=== PATIENT | female | born 1940 | race American Indian/Alaskan Native ===

== ENCOUNTER 2016-10-21 10:18 | Inpatient (IN) | payer MEDICARE ==
[2016-10-21 10:51] LABS: ISTAT Base Excess 2; ISTAT HCO3 30.6; ISTAT PCO2 86.7 (35-45); ISTAT PH 7.155 (7.35-7.45); ISTAT PO2 160 (80-105); ISTAT SO2 99; ISTAT TCO2 33
[2016-10-21] MEDS ORDERED: NACL 0.9% 1000 ML 1,000 ML IV ONE (11:02)
[2016-10-21] MEDS ORDERED: LEVAQUIN 500MG/100ML 100 ML IV ONE (11:06)
[2016-10-21 11:27] LABS: Mean Corpuscular HGB Conc 30 % (30-34); Mean Corpuscular Hemoglobin 29 pg (28-32); Mean Corpuscular Volume 95 fl (79-97); Platelet Count 355 K/mm3 (140-440); Red Blood Count 3.35 M/mm3 (3.65-5.03); Red Cell Distribution Width 17.3 % (13.2-15.2)
[2016-10-21 11:38] LABS: Hematocrit 31.9 % (30.3-42.9); Hemoglobin 9.6 gm/dl (10.1-14.3); INR 1.14 (0.87-1.13); White Blood Count 29.2 K/mm3 (4.5-11.0)
--- NOTE | 2016-10-21 11:41 | XRay Report ---
AP CHEST: HISTORY: Sepsis Bilateral perihilar infiltrates are identified which are new since 08/03/16. This could represent pneumonia or pulmonary edema. Heart size remains normal. No pleural effusion or pneumothorax. IMPRESSION: Bilateral perihilar pneumonia versus pulmonary edema.
[2016-10-21 11:48] LABS: Creatine Kinase MB 1.5 ng/mL (0.0-4.0)
[2016-10-21 11:50] LABS: Alanine Aminotransferase 19 units/L (7-56); Albumin 2.3 g/dL (3.9-5); Albumin/Globulin Ratio 0.3 %; Alkaline Phosphatase 311 units/L (35-129); Anion Gap 13 mmol/L; Bilirubin,Total 0.2 mg/dL (0.1-1.2); Blood Urea Nitrogen 52 mg/dL (7-17); Calcium 10.7 mg/dL (8.4-10.2); Carbon Dioxide 27 mmol/L (22-30); Chloride 104.5 mmol/L (98-107); Creatine Kinase 30 units/L (30-135); Glucose 116 mg/dL (65-100); Magnesium 2.3 mg/dL (1.7-2.3); Potassium 4.8 mmol/L (3.6-5.0); Sodium 140 mmol/L (137-145); Total Protein 9.3 g/dL (6.3-8.2)
[2016-10-21 11:53] LABS: Bilirubin,Direct < 0.2 mg/dL (0-0.2)
[2016-10-21] MEDS ORDERED: VANCOMYCIN PHARMACY TO DOSE IV SCH ×2 (12:00→22:00)
[2016-10-21 12:51] LABS: ISTAT Base Excess -1; ISTAT HCO3 24.5; ISTAT PCO2 45.7 (35-45); ISTAT PH 7.337 (7.35-7.45); ISTAT PO2 94 (80-105); ISTAT SO2 97; ISTAT TCO2 26
[2016-10-21] MEDS ORDERED: VANCOMYCIN/NS 1 GM/250 ML 250 ML IV SCH (13:00)
[2016-10-21 13:02] LABS: Basophils % (Manual) 0 % (0.0-1.8); Blastocytes % (Manual) 0 %
[2016-10-21 13:03] LABS: Anisocytosis 1+; Diff Status Complete; Platelet Estimate Consistent w Auto
--- NOTE | 2016-10-21 13:06 | Emergency Department Report ---
ED General Adult HPI - General Chief complaint: Altered Mental Status Stated complaint: LOW O2 SAT, SOB Time Seen by Provider: 10/21/16 10:55 Source: EMS Mode of arrival: Stretcher Limitations: Altered Mental Status, Physical Limitation - History of Present Illness Initial comments: The patient was sent to this emergency department from the alf at [place] for altered mental status and a low oxygen saturation. I have no report of fever. I believe the patient's baseline to be total care. She is obviously bedridden and contracted. He arrives lethargic and was placed on BiPAP by the nursing and respiratory staff. A blood gas was obtained which demonstrated a pH of 7.155 PCO2 of 86.7 PO2 of 160 with a bicarbonate of 30.6. When I was summoned to the room the patient was already successfully noninvasive ventilatory. She is unable to provide any history. She does not respond to her name but she is awake. -: unknown Consistency: constant Improves with: none Worsens with: none Associated Symptoms: other (unable to obtain) - Related Data Home Medications Medication Instructions Recorded Confirmed Last Taken Sennosides/Docusate Sodium [Senna 1 each PO BID 12/22/13 10/21/16 07/30/16 Laxative Tablet] Anastrozole (Nf) [Arimidex (Nf)] 1 mg PO DAILY 07/31/16 10/21/16 07/30/16 Ferrous Sulfate [Feosol 325 MG tab] 325 mg PO QDAY 07/31/16 10/21/16 07/30/16 Lactulose [Cephulac] 20 gm PO QPM 07/31/16 10/21/16 07/30/16 Levothyroxine [Synthroid] 25 mcg PO QDAY 07/31/16 10/21/16 07/30/16 Previous Rx's Medication Instructions Recorded Last Taken Type HYDROcodone/APAP 5-325 [[place] 1 each PO QDAY #6 tablet 08/07/16 Unknown Rx 5-325 mg TAB] Insulin Glulisine [Apidra] 0 units SUB-Q Q6HR units 08/07/16 Unknown Rx Lipase/Protease/Amylase [Pancreaze 1 each FEEDTUBE PRN PRN #3 capsule 08/07/[address] 10,500 Unit] Sodium Bicarbonate 325 mg FEEDTUBE PRN PRN #3 tablet 08/07/16 Unknown Rx levETIRAcetam [Keppra TAB] 500 mg PO BID #60 tablet 08/07/16 Unknown Rx Allergies Allergy/AdvReac Type Severity Reaction Status Date / Time Penicillins Allergy Unknown Verified 09/05/16 07:18 piperacillin sodium Allergy Unknown Verified 12/22/13 13:11 [From Zosyn] tazobactam sodium Allergy Unknown Verified 12/22/13 13:11 [From Zosyn] ED Review of Systems ROS: Stated complaint: LOW O2 SAT, SOB Other details as noted in HPI Comment: Unobtainable due to pts medical conditions ED Past Medical Hx - Past Medical History Hx CVA: Yes (cerebral infarct) Hx Diabetes: Yes Hx Deep Vein Thrombosis: Yes (left leg) Hx Pulmonary Embolism: Yes Hx GERD: Yes (constipation) Hx Seizures: Yes Hx Psychiatric Treatment: Yes (depression w/ psychosis) Hx Asthma: Yes Hx COPD: Yes Hx Dementia: Yes Hx HIV: No Additional medical history: anorexia; hypothyroidism, UTI; stage IV BED SORES - Surgical History Hx Pacemaker: No Hx Internal Defibrillator: No Additional Surgical History: THYROIDECTOMY; PEG TUBE PLACEMENT - Social History Smoking Status: Unknown if ever smoked - Medications Home Medications: Home Medications Medication Instructions Recorded Confirmed Last Taken Type Sennosides/Docusate Sodium [Senna 1 each PO BID 12/22/13 10/21/16 07/30/16 History Laxative Tablet] Anastrozole (Nf) [Arimidex (Nf)] 1 mg PO DAILY 07/31/16 10/21/16 07/30/16 History Ferrous Sulfate [Feosol 325 MG tab] 325 mg PO QDAY 07/31/16 10/21/16 07/30/16 History Lactulose [Cephulac] 20 gm PO QPM 07/31/16 10/21/16 07/30/16 History Levothyroxine [Synthroid] 25 mcg PO QDAY 07/31/16 10/21/16 07/30/16 History HYDROcodone/APAP 5-325 [[place] 1 each PO QDAY #6 tablet 08/07/16 10/21/16 Unknown Rx 5-325 mg TAB] Insulin Glulisine [Apidra] 0 units SUB-Q Q6HR units 08/07/16 10/21/16 Unknown Rx Lipase/Protease/Amylase [Pancreaze 1 each FEEDTUBE PRN PRN #3 capsule 08/07/16 10/21/16 Unknown Rx 10,500 Unit] Sodium Bicarbonate 325 mg FEEDTUBE PRN PRN #3 tablet 08/07/16 10/21/16 Unknown Rx levETIRAcetam [Keppra TAB] 500 mg PO BID #60 tablet 08/07/16 10/21/16 Unknown Rx ED Physical Exam - General Limitations: Altered Mental Status, Physical Limitation General appearance: lethargic - Head Head exam: Present: atraumatic - Eye Eye exam: Absent: scleral icterus - ENT ENT exam: Present: other (BiPAP mask in place) - Neck Neck exam: Present: normal inspection. Absent: tenderness, meningismus - Respiratory Respiratory exam: Present: rhonchi (bilateral rhonchi). Absent: accessory muscle use - Cardiovascular Cardiovascular Exam: Present: normal rhythm, tachycardia - GI/Abdominal GI/Abdominal exam: Present: soft. Absent: distended, tenderness, guarding, rebound, rigid - Extremities Exam Extremities exam: Present: other (attracted) - Neurological Exam Neurological exam: Present: altered, other (poorly responsive to painful stimuli but awake) - Skin Skin exam: Present: warm, dry ED Course Vital Signs 10/21/16 10/21/16 10/21/16 10:19 10:24 10:30 Temperature 95.5 F L Pulse Rate 117 H 122 H 122 H Respiratory 16 24 18 Rate Blood Pressure 138/71 128/68 O2 Sat by Pulse 100 100 100 Oximetry 10/21/16 10/21/16 10/21/16 10:34 10:35 11:00 Temperature Pulse Rate 122 H 118 H Respiratory 18 20 27 H Rate Blood Pressure 128/68 100/49 O2 Sat by Pulse 100 99 93 Oximetry 10/21/16 10/21/16 11:10 12:00 Temperature Pulse Rate 116 H 112 H Respiratory 33 H 22 Rate Blood Pressure 100/49 86/47 O2 Sat by Pulse 95 80 L Oximetry - Reevaluation(s) Reevaluation #1: The patient was given IV fluid. She was continued on BiPAP. A repeat blood gas was much improved. BiPAP was continued. The patient's chest x-ray showed bilateral infiltrates consistent with bilateral pneumonia. The patient had been empirically treated with Levaquin and vancomycin to start after blood cultures. The hospitalist Dr. Kat was notified of the need for admission. The patient remained hemodynamically stable. 10/21/16 13:06 ED Medical Decision Making - Lab Data Result diagrams: 10/21/16 11:04 10/21/16 11:04 Laboratory Results - last 24 hr 10/21/16 10/21/16 10/21/16 10:39 10:43 11:04 WBC 29.2 H RBC 3.35 L Hgb 9.6 L Hct 31.9 MCV 95 MCH 29 MCHC 30 RDW 17.3 H Plt Count 355 Add Manual Diff Complete Total Counted 200 Seg Neuts % (Manual) 87.0 H Band Neutrophils % 3.5 Lymphocytes % (Manual) 4.5 L Reactive Lymphs % (Man) 0 Monocytes % (Manual) 1.0 Eosinophils % (Manual) 4.0 Basophils % (Manual) 0 Metamyelocytes % 0 Myelocytes % 0 Promyelocytes % 0 Blast Cells % 0 Nucleated RBC % Not Reportable Seg Neutrophils # Man 25.4 H Band Neutrophils # 1.0 Lymphocytes # (Manual) 1.3 Abs React Lymphs (Man) 0.0 Monocytes # (Manual) 0.3 Eosinophils # (Manual) 1.2 H Basophils # (Manual) 0.0 Metamyelocytes # 0.0 Myelocytes # 0.0 Promyelocytes # 0.0 Blast Cells # 0.0 WBC Morphology Not Reportable Hypersegmented Neuts Not Reportable Hyposegmented Neuts Not Reportable Hypogranular Neuts Not Reportable Smudge Cells Not Reportable Toxic Granulation Not Reportable Toxic Vacuolation Not Reportable Dohle Bodies Not Reportable Pelger-Huet Anomaly Not Reportable Onelia Rods Not Reportable Platelet Estimate Consistent w auto Clumped Platelets Not Reportable Plt Clumps, EDTA Not Reportable Large Platelets Not Reportable Giant Platelets Not Reportable Platelet Satelliting Not Reportable Plt Morphology Comment Not Reportable RBC Morphology Not Reportable Dimorphic RBCs Not Reportable Polychromasia Not Reportable Hypochromasia Not Reportable Poikilocytosis Not Reportable Anisocytosis 1+ Microcytosis Not Reportable Macrocytosis Not Reportable Spherocytes Not Reportable Pappenheimer Bodies Not Reportable Sickle Cells Not Reportable Target Cells Not Reportable Tear Drop Cells Not Reportable Ovalocytes Not Reportable Helmet Cells Not Reportable [place] Bodies Not Reportable [place] Rings Not Reportable Lizz Cells Not Reportable Bite Cells Not Reportable Crenated Cell Not Reportable Elliptocytes Not Reportable Acanthocytes (Spur) Not Reportable Rouleaux Not Reportable Hemoglobin C Crystals Not Reportable Schistocytes Not Reportable Malaria parasites Not Reportable Roberto Bodies Not Reportable Hem Pathologist Commnt No PT INR POC ABG pH 7.155 L POC ABG pCO2 86.7 H POC ABG pO2 160 H POC ABG HCO3 30.6 POC ABG Total CO2 33 POC ABG O2 Sat 99 POC ABG Base Excess 2 VBG pH FiO2 100 Sodium Potassium Chloride Carbon Dioxide Anion Gap BUN Creatinine Estimated GFR BUN/Creatinine Ratio Glucose POC Glucose 107 H Lactic Acid Calcium Magnesium Total Bilirubin Direct Bilirubin AST ALT Alkaline Phosphatase Ammonia Total Creatine Kinase CK-MB (CK-2) CK-MB (CK-2) Rel Index Troponin T Total Protein Albumin Albumin/Globulin Ratio 10/21/16 10/21/16 10/21/16 11:04 11:04 11:04 WBC RBC Hgb Hct MCV MCH MCHC RDW Plt Count Add Manual Diff Total Counted Seg Neuts % (Manual) Band Neutrophils % Lymphocytes % (Manual) Reactive Lymphs % (Man) Monocytes % (Manual) Eosinophils % (Manual) Basophils % (Manual) Metamyelocytes % Myelocytes % Promyelocytes % Blast Cells % Nucleated RBC % Seg Neutrophils # Man Band Neutrophils # Lymphocytes # (Manual) Abs React Lymphs (Man) Monocytes # (Manual) Eosinophils # (Manual) Basophils # (Manual) Metamyelocytes # Myelocytes # Promyelocytes # Blast Cells # WBC Morphology Hypersegmented Neuts Hyposegmented Neuts Hypogranular Neuts Smudge Cells Toxic Granulation Toxic Vacuolation Dohle Bodies Pelger-Huet Anomaly Onelia Rods Platelet Estimate Clumped Platelets Plt Clumps, EDTA Large Platelets Giant Platelets Platelet Satelliting Plt Morphology Comment RBC Morphology Dimorphic RBCs Polychromasia Hypochromasia Poikilocytosis Anisocytosis Microcytosis Macrocytosis Spherocytes Pappenheimer Bodies Sickle Cells Target Cells Tear Drop Cells Ovalocytes Helmet Cells Brow[place] Bodies [place] Rings Lizz Cells Bite Cells Crenated Cell Elliptocytes Acanthocytes (Spur) Rouleaux Hemoglobin C Crystals Schistocytes Malaria parasites Roberto Bodies Hem Pathologist Commnt PT 14.5 INR 1.14 H POC ABG pH POC ABG pCO2 POC ABG pO2 POC ABG HCO3 POC ABG Total CO2 POC ABG O2 Sat POC ABG Base Excess VBG pH 7.221 L FiO2 Sodium Potassium Chloride Carbon Dioxide Anion Gap BUN Creatinine Estimated GFR BUN/Creatinine Ratio Glucose POC Glucose Lactic Acid 1.6 Calcium Magnesium Total Bilirubin Direct Bilirubin AST ALT Alkaline Phosphatase Ammonia Total Creatine Kinase CK-MB (CK-2) CK-MB (CK-2) Rel Index Troponin T Total Protein Albumin Albumin/Globulin Ratio 10/21/16 10/21/16 10/21/16 11:04 11:50 12:41 WBC RBC Hgb Hct MCV MCH MCHC RDW Plt Count Add Manual Diff Total Counted Seg Neuts % (Manual) Band Neutrophils % Lymphocytes % (Manual) Reactive Lymphs % (Man) Monocytes % (Manual) Eosinophils % (Manual) Basophils % (Manual) Metamyelocytes % Myelocytes % Promyelocytes % Blast Cells % Nucleated RBC % Seg Neutrophils # Man Band Neutrophils # Lymphocytes # (Manual) Abs React Lymphs (Man) Monocytes # (Manual) Eosinophils # (Manual) Basophils # (Manual) Metamyelocytes # Myelocytes # Promyelocytes # Blast Cells # WBC Morphology Hypersegmented Neuts Hyposegmented Neuts Hypogranular Neuts Smudge Cells Toxic Granulation Toxic Vacuolation Dohle Bodies Pelger-Huet Anomaly Onelia Rods Platelet Estimate Clumped Platelets Plt Clumps, EDTA Large Platelets Giant Platelets Platelet Satelliting Plt Morphology Comment RBC Morphology Dimorphic RBCs Polychromasia Hypochromasia Poikilocytosis Anisocytosis Microcytosis Macrocytosis Spherocytes Pappenheimer Bodies Sickle Cells Target Cells Tear Drop Cells Ovalocytes Helmet Cells Brow[place] Bodies [place] Rings [place] Cells Bite Cells Crenated Cell Elliptocytes Acanthocytes (Spur) Rouleaux Hemoglobin C Crystals Schistocytes Malaria parasites Roberto Bodies Hem Pathologist Commnt PT INR POC ABG pH 7.337 L POC ABG pCO2 45.7 H POC ABG pO2 94 POC ABG HCO3 24.5 POC ABG Total CO2 26 POC ABG O2 Sat 97 POC ABG Base Excess -1 VBG pH FiO2 100 Sodium 140 Potassium 4.8 Chloride 104.5 Carbon Dioxide 27 Anion Gap 13 BUN 52 H Creatinine 0.5 L Estimated GFR > 60 BUN/Creatinine Ratio 104.00 Glucose 116 H POC Glucose Lactic Acid Calcium 10.7 H Magnesium 2.3 Total Bilirubin 0.2 Direct Bilirubin < 0.2 AST 40 ALT 19 Alkaline Phosphatase 311 H Ammonia 74.0 H Total Creatine Kinase 30 CK-MB (CK-2) 1.5 CK-MB (CK-2) Rel Index 5.0 H Troponin T < 0.010 Total Protein 9.3 H Albumin 2.3 L Albumin/Globulin Ratio 0.3 - EKG Data -: EKG Interpreted by Me EKG shows normal: sinus rhythm, axis, intervals, QRS complexes Rate: tachycardia - EKG Data Interpretation: nonspecific ST-T wave danielle There is slight J-point elevation in the inferolateral leads. This is nonspecific. 10/21/16 13:27 - Radiology Data interpreted by me: Bilateral pulmonary infiltrates normal heart size consistent with bilateral pneumonia Critical Care Time: Yes Critical care time in (mins) excluding proc time.: 60 Critical care attestation.: If time is entered above; I have spent that time in minutes in the direct care of this critically ill patient, excluding procedure time. ED Disposition Clinical Impression: Acute hypercapnic respiratory failure, Prerenal azotemia Bilateral pneumonia Qualifiers: Pneumonia type: due to unspecified organism Lung location: unspecified part of lung Qualified Code(s): J18.9 - Pneumonia, unspecified organism Sepsis Qualifiers: Sepsis type: sepsis due to unspecified organism Qualified Code(s): A41.9 - Sepsis, unspecified organism Disposition: OP ADMITTED IP TO THIS HOSP Is pt being admited?: Yes Does the pt Need Aspirin: No Condition: Stable Instructions: Bacterial Pneumonia (ED) Referrals: PRIMARY CARE, [Primary Care Provider] - 3-5 Days Time of Disposition: 13:30
[2016-10-21] MEDS ORDERED: D50W (25GM) IV PRN ×2 (13:08→13:27)
[2016-10-21] MEDS ORDERED: SODIUM BICARBONATE FEEDTUBE PRN (13:17)
[2016-10-21] MEDS ORDERED: PANCREAZE DR 10,500 UNIT FEEDTUBE PRN (13:17)
[2016-10-21] MEDS ORDERED: SYNTHROID PO SCH (13:30)
[2016-10-21] MEDS ORDERED: CEPHULAC PO SCH ×2 (14:00→18:00)
[2016-10-21] MEDS: SENOKOT S PO SCH ×2 (14:08→23:16)
[2016-10-21] MEDS: KEPPRA PO SCH ×2 (14:08→23:15)
[2016-10-21] MEDS: NACL 0.9% 1000 ML 1,000 ML IV ONE ×2 (14:20→20:51)
[2016-10-21 14:28] LABS: Creatine Kinase MB 1.9 ng/mL (0.0-4.0)
[2016-10-21 14:30] LABS: Alanine Aminotransferase 16 units/L (7-56); Albumin 1.6 g/dL (3.9-5); Albumin/Globulin Ratio 0.3 %; Alkaline Phosphatase 231 units/L (35-129); BUN/Creatinine Ratio 86.66; Bilirubin,Total 0.2 mg/dL (0.1-1.2); Blood Urea Nitrogen 52 mg/dL (7-17); Calcium 9.7 mg/dL (8.4-10.2); Carbon Dioxide 24 mmol/L (22-30); Chloride 111.9 mmol/L (98-107); Creatine Kinase 30 units/L (30-135); Glucose 146 mg/dL (65-100); Potassium 4.1 mmol/L (3.6-5.0); Sodium 142 mmol/L (137-145); Total Protein 7.3 g/dL (6.3-8.2)
[2016-10-21 14:34] LABS: Anion Gap 10 mmol/L
[2016-10-21 14:43] LABS: Hematocrit 26.9 % (30.3-42.9); Hemoglobin 8.1 gm/dl (10.1-14.3); Mean Corpuscular HGB Conc 30 % (30-34); Mean Corpuscular Hemoglobin 30 pg (28-32); Mean Corpuscular Volume 99 fl (79-97); Platelet Count 322 K/mm3 (140-440); Red Blood Count 2.73 M/mm3 (3.65-5.03); Red Cell Distribution Width 17.5 % (13.2-15.2); White Blood Count 18.4 K/mm3 (4.5-11.0)
[2016-10-21] MEDS ORDERED: ATROPINE 0.1% (CARDIAC) ONE (15:59)
[2016-10-21] MEDS ORDERED: NOVOLOG SUB-Q SCH (16:30)
[2016-10-21] MEDS ORDERED: ADRENALIN ONE (16:46)
[2016-10-21] MEDS ORDERED: QUELICIN IV ONE (16:56)
[2016-10-21] MEDS ORDERED: AMIDATE IV ONE ×2 (16:56→21:05)
[2016-10-21] MEDS ORDERED: LEVOPHED DRIP 4 MG/NS 250 ML 250 ML IV ONE ×2 (17:15→20:33)
[2016-10-21] MEDS: LEVOPHED DRIP 4 MG/NS 250 ML 250 ML IV SCH ×7 (17:26→21:30)
--- NOTE | 2016-10-21 17:35 | Emergency Department Report ---
Blank Doc - Documentation Documentation: This patient became hypotensive after admission. Despite her obvious dismal baseline condition and poor prognosis, Dr. Kat informs me that the family wants full resuscitation as they have now arrived. He requested that I assist with further stabilization. I found the patient to be hypotensive and somewhat bradycardic. Procedure note: right EJ catheter A 3 inch sheath was passed into an external vessel of the right neck. The patient is quite contracted. No other vessel couldn't be located. I attempted to read as guidewire into the central circulation. This was unsuccessful. A Y adapter was placed and the line flushed and bernie well. The patient was given 0.5 of epinephrine. This improved her heart rate. Assisted ventilation with an Ambu bag was initiated. I spoke to the family myself to verify that they wanted full resuscitative status efforts. They confirmed this although I counseled them as to the downside of aggressive medical intervention at this point. Procedure note: Endotracheal intubation The patient was preoxygenated. She was given 12 mgs of etomidate and 120 mg of succinylcholine. On direct laryngoscopy the patient had quite a pool of emesis. Cords were easily visualized and a 7.[address] There was substantial aspiration are to this procedure. I believe the patient had radiographic evidence of bilateral aspiration as well. In any case I lavaged and suctioned the tracheal tube. After the procedure the patient had oxygen saturation reading surprisingly at 100%. End-tidal CO2 was bright yellow. The tube was secured at 22 cm at the lip. A chest x-ray was obtained. Patient continued to be hypotensive. She was given another 0.5 of epinephrine. She was begun on Levophed. Bolus IV fluid was given. A report was given to Dr. Kat. Critical care time: 35 minutes.
[2016-10-21] MEDS ORDERED: NACL 0.9% 1000 ML IV ONE (17:45)
[2016-10-21] MEDS ORDERED: NACL 0.9% 1000 ML 1,000 ML ONE ×3 (18:12→20:42)
[2016-10-21] MEDS ORDERED: DUONEB 0.5 MG-3 MG/3 ML SOLN IH ONE (18:29)
[2016-10-21 19:10] LABS: ISTAT Base Excess -20; ISTAT HCO3 13.4; ISTAT PCO2 70.6 (35-45); ISTAT PH 6.885 (7.35-7.45); ISTAT PO2 42 (80-105); ISTAT SO2 44; ISTAT TCO2 15
[2016-10-21] MEDS ORDERED: SODIUM BICARBONATE IV ONE ×2 (19:47→20:00)
[2016-10-21 19:50] LABS: ISTAT Base Excess -15; ISTAT HCO3 16.4; ISTAT PCO2 64.5 (35-45); ISTAT PH 7.013 (7.35-7.45); ISTAT PO2 72 (80-105); ISTAT SO2 84; ISTAT TCO2 18
--- NOTE | 2016-10-21 20:21 | Operative Report ---
Operative Report Operative Report: EXAM: ULTRASOUND-GUIDED PLACEMENT OF CENTRAL VENOUS CATHETER CLINICAL INDICATION: ALTERED MENTAL STATUS, BACTEREMIA DATE: 10/21/2016 PROCEDURE: Following an explanation of the risks, benefits and alternatives; emergency consent was performed by the ER physician. The procedure was performed at bedside in the emergency room. Initial ultrasound evaluation of patient's right groin demonstrated a widely patent right common femoral vein. The patient's right groin was prepped and draped in the usual sterile fashion. 1% lidocaine was used for anesthesia. Under ultrasound guidance, the right common femoral vein was cannulated with a 7 cm 18-gauge needle. A 0.035 guidewire was advanced centrally easily. The needle was removed. Following serial dilation, a triple-lumen catheter was placed over the guidewire and advance centrally. The guidewire was removed. Nonpulsatile blood return from all 3 ports. The catheter was flushed with sterile saline and securely fastened of the skin surface using 2-0 silk suture. A sterile dressing was then applied. The patient tolerated the procedure well. There were no immediate post procedure complications. IMPRESSION: 1) Ultrasound guided placement of central venous catheter via the right common femoral vein.
[2016-10-21 20:50] LABS: Creatine Kinase MB 3.1 ng/mL (0.0-4.0)
[2016-10-21] MEDS: INTROPIN DRIP 800 MG/D5W 250 ML 250 ML IV SCH ×2 (20:50→21:30)
[2016-10-21] MEDS ORDERED: SODIUM BICARBONATE 150 MEQ in D5W 1,000 ML IV SCH (21:00)
[2016-10-21] MEDS ORDERED: QUELICIN ONE (21:05)
--- NOTE | 2016-10-21 21:27 | History and Physical Report ---
History of Present Illness Date of examination: 10/21/16 Date of admission: 10/21/16 13:00 Chief complaint: Difficulty breathing, vomiting. History of present illness: Patient is a 76-year-old lady who is a resident of [facility] with a history of dementia, recent pneumonia, bedbound, was reported by the halfway staff to have vomited, and thereafter started having difficulty in breathing. Patient was brought to the emergency department by EMS. Patient's granddaughters were in the room. They gave this history. He also stated the patient was full code. No fever was reported. Chest x-ray was remarkable for pulmonary infiltrates. Patient was found to also have a leukocytosis with hypothermia. Temperature was 95.6. Was placed on BiPAP because of progressive difficulty in breathing. Breathing treatment was given however symptoms persisted. Patient was hypotensive. Vascular surgical consult was obtained after attempted Central line by the emergency room doctor was unsuccessful. Patient was commenced on IV fluids as well as dopamine. Blood cultures have been obtained in emergency department. Vancomycin and Levaquin and meropenem were commenced as this is been treated as healthcare acquired pneumonia with sepsis. Admission to the ICU was ordered. Pulmonary consult was obtained. Patient intubated in the emergency department as she progressed into respiratory distress. Past History Past Medical History: anemia, arthritis, other (pneumonia and dementia) Past Surgical History: Other (cannot be obtained as patient ) Social history: denies: smoking, alcohol abuse, prescription drug abuse, IV drug use Family history: other (could not be obtained. Patient is nonverbal. Intubated) Medications and Allergies Allergies Allergy/AdvReac Type Severity Reaction Status Date / Time Penicillins Allergy Unknown Verified 09/05/16 07:18 piperacillin sodium Allergy Unknown Verified 12/22/13 13:11 [From Zosyn] tazobactam sodium Allergy Unknown Verified 12/22/13 13:11 [From Zosyn] Home Medications Medication Instructions Recorded Confirmed Last Taken Type Sennosides/Docusate Sodium [Senna 1 each PO BID 12/22/13 10/21/16 07/30/16 History Laxative Tablet] Anastrozole (Nf) [Arimidex (Nf)] 1 mg PO DAILY 07/31/16 10/21/16 07/30/16 History Ferrous Sulfate [Feosol 325 MG tab] 325 mg PO QDAY 10/10/21/16 07/30/16 History Lactulose [Cephulac] 20 gm PO QPM 07/31/16 10/21/16 07/30/16 History Levothyroxine [Synthroid] 25 mcg PO QDAY 07/31/16 10/21/16 07/30/16 History HYDROcodone/APAP 5-325 [Dedham 1 each PO QDAY #6 tablet 08/07/16 10/21/16 Unknown Rx 5-325 mg TAB] Insulin Glulisine [Apidra] 0 units SUB-Q Q6HR units 08/07/16 10/21/16 Unknown Rx Lipase/Protease/Amylase [Pancreaze 1 each FEEDTUBE PRN PRN #3 capsule 08/07/16 10/21/[address] 10,500 Unit] Sodium Bicarbonate 325 mg FEEDTUBE PRN PRN #3 tablet 08/07/16 10/21/16 Unknown Rx levETIRAcetam [Keppra TAB] 500 mg PO BID #60 tablet 08/07/16 10/21/16 Unknown Rx Active Meds: Active Medications Acetaminophen/Hydrocodone Bitart (Dedham 5/325) 1 each PO QDAY ROGERS Lipase/Protease/Amylase (Pancreaze Dr 10,500 Unit) 1 each FEEDTUBE PRN PRN PRN Reason: For Clogged Feeding Tube Dextrose (D50w (25gm)) 50 ml IV PRN PRN PRN Reason: Hypoglycemia Ferrous Sulfate (Feosol) 325 mg PO QDAY ROGERS Vancomycin HCl (Vancomycin/Ns 1 Gm/250 Ml) 250 mls @ 166.667 mls/hr IV Q24H ROGERS Last Admin: 10/21/16 12:35 Dose: 166.667 mls/hr Levofloxacin/Dextrose (Levaquin 500mg/100ml) 100 mls @ 100 mls/hr IV Q24HR ROGERS PRN Reason: Protocol Norepinephrine (Levophed Drip 4 Mg/Ns 250 Ml) 250 mls @ 45 mls/hr IV TITR ROGERS; 12 MCG/MIN PRN Reason: Protocol Last Titration: 10/21/16 20:45 Dose: 30 mcg/min Sodium Bicarbonate 150 meq/ (Dextrose) 1,150 mls @ 150 mls/hr IV DIRECT ROGERS Dopamine HCl/Dextrose (Intropin Drip 800 Mg/D5w 250 Ml) 250 mls @ 5.101 mls/hr IV TITR ROGERS; 5 MCG/KG/MIN PRN Reason: Protocol Last Admin: 10/21/16 20:50 Dose: 10.206 mls/hr Insulin Aspart (Novolog) 0 units SUB-Q ACHS ROGERS PRN Reason: Protocol Last Admin: 10/21/16 18:15 Dose: Not Given Lactulose (Cephulac) 20 gm PO QDAY [facility] Last Admin: 10/21/16 14:08 Dose: Not Given Lactulose (Cephulac) 20 gm PO QPM [facility] Last Admin: 10/21/16 18:03 Dose: Not Given Levetiracetam (Keppra) 500 mg PO BID [facility] Last Admin: 10/21/16 14:08 Dose: Not Given Levothyroxine Sodium (Synthroid) 25 mcg PO QDAY [facility] Last Admin: 10/21/16 14:03 Dose: Not Given Senna/Docusate Sodium (Senokot S) 1 tab PO BID [facility] Last Admin: 10/21/16 14:08 Dose: Not Given Sodium Bicarbonate (Sodium Bicarbonate) 325 mg FEEDTUBE PRN PRN PRN Reason: For Clogged Feeding Tube Vancomycin HCl (Vancomycin Pharmacy To Dose) 1 each IV PKCONSULT [facility] PRN Reason: Protocol Review of Systems ROS unobtainable: due to mental status Exam - Constitutional Vitals: Temp Pulse Resp BP Pulse Ox 89.4 F L 84 19 87/40 94 10/21/16 20:00 10/21/16 21:00 10/21/16 21:00 10/21/16 21:00 10/21/16 21:00 General appearance: Present: severe distress - EENT Eyes: Present: PERRL - Neck Neck: Present: supple, normal ROM - Respiratory Respiratory: bilateral: diminished, rhonchi - Cardiovascular Rhythm: regular Heart Sounds: Present: S1 & S2 - Extremities Extremities: no ischemia, No edema Extremity abnormal: other (contractures of both lower extremities and upper extremities) - Abdominal General gastrointestinal: Present: soft, non-distended, distended - Integumentary Integumentary: Present: clear, warm - Musculoskeletal Musculoskeletal: other (bedbound, nonverbal, has contractures of lower extremities) - Psychiatric Psychiatric: other (nonpalpable.) - Neurologic Neurologic: CNII-XII intact Results - Labs CBC & Chem 7: 10/21/16 13:47 10/21/16 13:47 Labs: Abnormal lab results 10/21/16 10/21/16 10/21/16 Range/Units 13:47 13:47 17:36 WBC 18.4 H (4.5-11.0) K/mm3 RBC 2.73 L (3.65-5.03) M/mm3 Hgb 8.1 L (10.1-14.3) gm/dl Hct 26.9 L (30.3-42.9) % MCV 99 H D (79-97) fl RDW 17.5 H (13.2-15.2) % POC ABG pH (7.35-7.45) POC ABG pCO2 (35-45) POC ABG pO2 (80-105) Chloride 111.9 H (98-107) mmol/L BUN 52 H (7-17) mg/dL Creatinine 0.6 L (0.7-1.2) mg/dL Glucose 146 H (65-100) mg/dL Lactic Acid 6.4 H* (0.7-2.0) mmol/L Alkaline Phosphatase 231 H (35-129) units/L CK-MB (CK-2) Rel Index 6.3 H (0-4) Albumin 1.6 L (3.9-5) g/dL 10/21/16 10/21/16 10/21/16 Range/Units 18:12 19:19 20:23 WBC (4.5-11.0) K/mm3 RBC (3.65-5.03) M/mm3 Hgb (10.1-14.3) gm/dl Hct (30.3-42.9) % MCV (79-97) fl RDW (13.2-15.2) % POC ABG pH 6.885 L 7.013 L (7.35-7.45) POC ABG pCO2 70.6 H 64.5 H (35-45) POC ABG pO2 42 L 72 L (80-105) Chloride (98-107) mmol/L BUN (7-17) mg/dL Creatinine (0.7-1.2) mg/dL Glucose (65-100) mg/dL Lactic Acid (0.7-2.0) mmol/L Alkaline Phosphatase (35-129) units/L CK-MB (CK-2) Rel Index 5.6 H (0-4) Albumin (3.9-5) g/dL Assessment and Plan - Patient Problems (1) Acute hypercapnic respiratory failure Diagnosis Date: 10/21/16 Current Visit: Yes Status: Acute Plan to address problem: Patient is intubated. We will obtain repeat ABG, chest x-ray in the morning Bronchodilators, pulmonary consult for vent management obtained. (2) Sepsis Diagnosis Date: 10/21/16 Current Visit: Yes Status: Acute Qualifiers: Sepsis type: Pneumococcus Qualified Code(s): A40.3 - Sepsis due to Streptococcus pneumoniae Plan to address problem: Blood cultures obtained. Lactic acid levels ordered. Every 3 hours. Patient on IV hydration. Dopamine commenced Sepsis likely secondary to gram-positive organism for pneumonia. Patient already on vancomycin, Levaquin, and meropenem. Patient is allergic to Zosyn ID consult will be obtained. (3) Aspiration pneumonia due to vomit Diagnosis Date: 10/21/16 Current Visit: Yes Status: Acute Plan to address problem: Patient from getting smaller. Pneumonia/aspiration. Patient urgently planned biotics. Follow-up blood cultures. (4) Prerenal azotemia Diagnosis Date: 10/21/16 Current Visit: Yes Status: Acute Plan to address problem: Patient was slightly dehydrated. Hydration with normal saline ordered (5) DVT prophylaxis Diagnosis Date: 10/21/16 Current Visit: No Status: Acute Plan to address problem: DVT prophylaxis with Lovenox, GI prophylaxis with Pepcid.
[2016-10-21] MEDS ORDERED: VANCOMYCIN VIAL IV ONE (21:29)
[2016-10-21 22:25] LABS: ISTAT Base Excess -12; ISTAT HCO3 18.4; ISTAT PCO2 70.1 (35-45); ISTAT PH 7.028 (7.35-7.45); ISTAT PO2 57 (80-105); ISTAT SO2 73; ISTAT TCO2 21
[2016-10-21] MEDS ORDERED: MERREM 1,000 MG in NACL 0.9% 100 ML IV SCH (23:00)
[2016-10-21] MEDS ORDERED: PITRESSin 20 UNIT in NACL 0.9% 100 ML IV SCH (23:00)
[2016-10-21] MEDS ORDERED: NACL 0.45% 1000 ML 1,000 ML IV SCH (23:00)
[2016-10-21] MEDS: DUONEB 0.5 MG-3 MG/3 ML SOLN IH SCH (23:38)
[2016-10-22] MEDS ORDERED: MERREM/NS 500 MG/50 ML 50 ML IV SCH
[2016-10-22 00:39] LABS: Creatine Kinase MB 4.6 ng/mL (0.0-4.0)
[2016-10-22 01:01] VITALS: BP 63/34
[2016-10-22] MEDS ORDERED: ADRENALIN ONE (02:00)
[2016-10-22] MEDS ORDERED: ATROPINE 0.1% (CARDIAC) ONE (02:00)
--- NOTE | 2016-10-22 02:43 | Event Note ---
Date: 10/22/16 CODE BLUE called Patient became bradycardic, she lost her pulse, rhythm was PEA ACLS protocol was initiated, please refer to code sheet for details There was no ROSC, time of 212
[2016-10-22] MEDS: DUONEB 0.5 MG-3 MG/3 ML SOLN IH SCH (02:47)
--- NOTE | 2016-10-22 03:43 | Admit Criteria Form ---
Admission Criteria Documentation: SEPSIS and OTHER FEBRILE ILLNESS, W/O FOCAL INFECTION Clinical Indications for Admission to Inpatient Care ( Place 'X' for any and all applicable criteria): Admission is indicated for ANY ONE of the following (1)(2)(3)(4): [ ] I. Bacteremia [ ]II. Suspected or identified specific infection requiring hospitalization (eg, meningitis, endocarditis) [ ]III. Hemodynamic instability [ ]IV. Altered mental status [ ]V. Failure or unavailability of outpatient antimicrobial treatment [ ]. Hypoxemia [ ]VII. Seizures [ ]VIII. High-risk febrile neutropenia [ ]IX. Need for parenteral antibiotic in patient who is likely to abuse vascular access device (eg, injection drug user) [A](7) [ ]X. Temperature greater than 104.9 degrees F (40.5 degrees C) (oral) [X ]XI. Inpatient admission required rather than observation care because of ANY ONE of the following: [ ]1) Specific infection identified that is too severe for outpatient treatment or observation care trial [ X]2) Metabolic disorder (eg, hypoglycemia, hyperglycemia, metabolic acidosis) that is severe or persistent [ ]3) Temperature greater than 103.1 degrees F (39.5 degrees C) ( oral) that is not responsive to observation care treatment [ ]4) IV fluid to replace significant ongoing (eg, for over 24 hours) losses (> 3 L/m2 per day) [ ]5) Supplemental oxygen or respiratory treatments for over 24 hours that is performable only in acute inpatient setting [ ]6) Parenteral nutrition regimen need that must be implemented on inpatient basis [ ]7) Strict or protective (eg, laminar flow) isolation [ ]8) Other condition, treatment or monitoring requiring inpatient admission Extended stay beyond goal length of stay may be needed for(1)(3) [ ]a) Sepsis or septic shock(22) [ ]b) Positive blood cultures [ ]c) Insufficient oral intake [ ]d) High-risk febrile neutropenia(29)(30) [ ]e) Continued fever and clinical instability [ ]f) Clinically active comorbid illness (e.g,heart failure, renal failure , diabetes) The original [facility] [employer] content created by June Houser has been revised. The portions of the content which have been revised are identified through the use of italic text or in bold, and June Houser has neither reviewed nor approved the modified material. All other unmodified content is copyright [facility]. Please see references footnoted in the original [facility] edition 2016 Admission Criteria Met: Yes
--- NOTE | 2016-10-22 08:26 | XRay Report ---
AP CHEST :10/21/16 17:36 CLINICAL: Post intubation. COMPARISON:10/21/16 10:55 FINDINGS: Since the previous exam, an endotracheal tube is been inserted and the tip is satisfactory. Increased fluffy bilateral perihilar opacities obscuring the pulmonary vessels. The heart remains normal size. No pneumothorax. IMPRESSION: Satisfactory position of the endotracheal tube.Significantly increased central pulmonary edema.
[2016-10-22] MEDS ORDERED: FEOSOL PO SCH (10:00)
[2016-10-22] MEDS ORDERED: NON-FORMULARY (Anastrozole (Nf) 1 MG) PO SCH (10:00)
[2016-10-22] MEDS ORDERED: ARIMIDEX (NF) PO SCH (10:00)
[2016-10-22] MEDS ORDERED: NORCO 5/325 PO SCH (10:00)
[2016-10-22] MEDS ORDERED: LEVAQUIN 500MG/100ML 100 ML IV SCH (10:00)
[2016-10-22] MEDS ORDERED: VANCOMYCIN VIAL 750 MG in NACL 0.9% 250ML 250 ML IV SCH (12:00)
== END 2016-10-22 06:30 | DRG 871 ==
LOC: ED 10:18 → 4A 13:00 → CC1 15:19
PROVIDERS: ADMIT Family Medicine; ATTEND Internal Medicine
PROC: 0BH17EZ Insertion of Endotracheal Airway into Trachea, Via Natural or Artificial Opening (ICD-10-PCS; principal; 2016-10-21)
PROC: 5A1935Z Respiratory Ventilation, Less than 24 Consecutive Hours (ICD-10-PCS; 2016-10-21)
PROC: 02HV33Z Insertion of Infusion Device into Superior Vena Cava, Percutaneous Approach (ICD-10-PCS; 2016-10-21)
PROC: B548ZZA Ultrasonography of Superior Vena Cava, Guidance (ICD-10-PCS; 2016-10-21)
DX: A40.3 Sepsis due to Streptococcus pneumoniae (principal); J96.02 Acute respiratory failure with hypercapnia; J69.0 Pneumonitis due to inhalation of food and vomit; J44.0 Chronic obstructive pulmonary disease with (acute) lower respiratory infection; F03.90 Unspecified dementia, unspecified severity, without behavioral disturbance, psychotic disturbance, mood disturbance, and anxiety; M19.90 Unspecified osteoarthritis, unspecified site; E11.9 Type 2 diabetes mellitus without complications; K21.9 Gastro-esophageal reflux disease without esophagitis; E03.9 Hypothyroidism, unspecified; Z79.4 Long term (current) use of insulin; Z79.899 Other long term (current) drug therapy; Z93.1 Gastrostomy status; Z74.01 Bed confinement status; Z88.0 Allergy status to penicillin; Z88.8 Allergy status to other drugs, medicaments and biological substances; Z86.73 Personal history of transient ischemic attack (TIA), and cerebral infarction without residual deficits; Z86.718 Personal history of other venous thrombosis and embolism; Z86.711 Personal history of pulmonary embolism
CPT/HCPCS: 36415; 36600; 71010; 80048; 80053; 80074; 82140; 82550; 82553; 82803; 82805; 82947; 82962; 83036; 83735; 84484; 85007; 85025; 85610; 87040; 92950; 93005; 93010; 94002; 94003; 94640; 96361; 96365; 96367; 96368; 96375; J0171; J0330; J0461; J1265; J1956; J2185; J3370; J7030; J7050; J7070; S0170